=== PATIENT | male | born 1945 | race Caucasian/White ===

== ENCOUNTER 2017-11-26 08:16 | Emergency (ER) | payer MEDICARE ==
[2017-11-26] MEDS ORDERED: METHYLPREDNISOLONE 80MG/VIAL IM ONE (08:30)
--- NOTE | 2017-11-26 08:38 | Emergency Department Record ---
History of Present Illness - General Chief complaint: Rash Stated complaint: POISON KATE Time Seen by Provider: 11/26/17 08:24 Source: Patient, RN notes reviewed Mode of Arrival: Ambulatory - History of Present Illness Initial comments: patient got rash 5 days ago and it is around the face and groin and hands and it itches and looks like poison kate Onset/Timin -: Days(s) Hx Tetanus Toxoid Vaccination: Yes Location: L hand, R hand, Genitals Severity: Mild Quality: Other Consistency: Constant Improves with: None Worsens with: None Context: Other Associated symptoms: Itching Treatments Prior to Arrival: None - Related Data Previous Rx's Medication Instructions Recorded Prednisone [Prednisone 10Mg] 10 mg PO ASDIR #30 tab 11/26/17 Allergies Allergy/AdvReac Type Severity Reaction Status Date / Time No Known Drug Allergies Allergy Unverified 03/16/16 14:36 Travel Screening - Travel/Exposure Within Last 30 Days Have you traveled within the last 30 days?: No Review of Systems Reviewed: No additional complaints except as noted below Constitutional: Reports: As per HPI. Denies: Chills, Fever, Malaise, Night sweats, Weakness, Weight change Eyes: Reports: As per HPI. Denies: Eye discharge, Eye pain, Photophobia, Vision change ENT: Reports: As per HPI. Denies: Congestion, Dental pain, Ear pain, Epistaxis , Hearing loss, Throat pain Respiratory: Reports: As per HPI. Denies: Cough, Dyspnea, Hemoptysis, Stridor, Wheezes Cardiovascular: Reports: As per HPI. Denies: Arrhythmia, Chest pain, Dyspnea on exertion, Edema, Murmurs, Orthopnea, Palpitations, Paroxysmal nocturnal dyspnea, Rheumatic Fever, Syncope Endocrine: Reports: As per HPI. Denies: Fatigue, Heat or cold intolerance, Polydipsia, Polyuria Gastrointestinal: Reports: As per HPI. Denies: Abdominal pain, Constipation, Diarrhea, Hematemesis, Hematochezia, Melena, Nausea, Vomiting Genitourinary: Reports: As per HPI. Denies: Dysuria, Frequency, Hematuria, Incontinence, Retention, Testicular pain, Testicular mass, Urgency Musculoskeletal: Reports: As per HPI. Denies: Arthralgia, Back pain, Gout, Joint swelling, Myalgia, Neck pain Skin: Reports: As per HPI, Rash. Denies: Bruising, Change in color, Change in hair/nails, Lesions, Pruritus Neurological: Reports: As per HPI. Denies: Abnormal gait, Confusion, Headache, Numbness, Paresthesias, Seizure, Tingling, Tremors, Vertigo, Weakness Psychiatric: Reports: As per HPI. Denies: Anxiety, Auditory hallucinations, Depression, Homicidal thoughts, Suicidal thoughts, Visual hallucinations Hematological/Lymphatic: Reports: As per HPI. Denies: Anemia, Blood Clots, Easy bleeding, Easy bruising, Swollen glands Past Medical History - SOCIAL HISTORY Smoking Status: Former smoker Alcohol Use: None Drug Use: None - RESPIRATORY Hx Respiratory Disorders: No - CARDIOVASCULAR Hx Cardio Disorders: Yes Hx Cardiac Cath: Yes Hx Heart Attack: Yes (1 cardiac stent 2004) Hx Irregular Heartbeat: Yes Comment:: high cholestrol - NEURO Hx Neuro Disorders: No - GI Hx GI Disorders: No - Hx Genitourinary Disorders: No - ENDOCRINE Hx Endocrine Disorders: No - MUSCULOSKELETAL Hx Musculoskeletal Disorders: Yes Hx Arthritis: Yes - PSYCH Hx Psych Problems: No - HEMATOLOGY/ONCOLOGY Hx Hematology/Oncology Disorders: No Family Medical History Any Significant Family History?: Yes Hx Heart Disease: Father Physical Exam - General General Appearance: Alert, Oriented x3, Cooperative, No acute distress - Head Head exam: Normal inspection - Eye Eye exam: Normal appearance, PERRL Pupils: Normal accommodation - ENT ENT exam: Normal exam, Mucous membranes moist, Normal external ear exam, Normal orophraynx, TM's normal bilaterally Ear exam: Normal external inspection. negative: External canal tenderness Nasal Exam: Normal inspection. negative: Discharge, Sinus tenderness Mouth exam: Normal external inspection, Tongue normal Teeth exam: Normal inspection. negative: Dental caries Throat exam: Normal inspection. negative: Tonsillar erythema, Tonsillar exudate - Neck Neck exam: Normal inspection, Full ROM. negative: Tenderness - Respiratory Respiratory exam: Normal lung sounds bilaterally. negative: Respiratory distress - Cardiovascular Cardiovascular Exam: Regular rate, Normal rhythm, Normal heart sounds - GI/Abdominal GI/Abdominal exam: Soft, Normal bowel sounds. negative: Tenderness - Rectal Rectal exam: Deferred - exam: Deferred - Extremities Extremities exam: Normal inspection, Full ROM, Normal capillary refill. negative: Tenderness - Back Back exam: Reports: Normal inspection, Full ROM. Denies: Muscle spasm, Rash noted, Tenderness - Neurological Neurological exam: Alert, Normal gait, Oriented X3, Reflexes normal - Psychiatric Psychiatric exam: Normal affect, Normal mood - Skin Skin exam: Dry, Intact, Rash Course Vital Signs 11/26/17 08:18 Temperature 97.7 F Pulse Rate 54 L Respiratory 20 Rate Blood Pressure 130/74 Pulse Ox 98 Disposition Clinical Impression: Poison kate dermatitis Disposition: Home, Self-Care Condition: (1) Good Instructions: Poison Kate (ED) Additional Instructions: follow up with family Dr. cruz pills 25 mg one to two every 6 hours for itching calamine lotion as needed Prescriptions: Prednisone [Prednisone 10Mg] 10 mg PO ASDIR #30 tab Forms: Patient Portal Access Time of Disposition: 08:38 Quality - Quality Measures Quality Measures: N/A - Blood Pressure Screening Does Patient Have Any of the Following: No Blood Pressure Classification: Pre-Hypertensive BP Reading Systolic Measurement: 130 Diastolic Measurement: 74 Screening for High Blood Pressure: < Pre-Hypertensive BP, F/U Documented > [ [id number]] Pre-Hypertensive Follow-up Interventions: Referral to alternative/primary care provider.
== END 2017-11-26 09:05 | disposition home or self-care (01) ==
LOC: ER 08:16
DX: L23.7 Allergic contact dermatitis due to plants, except food (principal); Z87.891 Personal history of nicotine dependence; E78.00 Pure hypercholesterolemia, unspecified
CPT/HCPCS: 96372; 99283; J1040

== ENCOUNTER 2018-05-27 08:50 | Day surgery (SDC) | payer MEDICARE ==
[2018-05-27] MEDS ORDERED: PROPOFOL 10 MG/ML VIAL IV ONE (08:51)
[2018-05-27] MEDS ORDERED: GLYCOPYRROLATE 0.2 MG/ML ML IV ONE (08:51)
[2018-05-27] MEDS ORDERED: LIDOCAINE 2% MDV (20MG/ML) 20ML VIAL IV ONE (08:51)
--- NOTE | 2018-05-30 08:50 | Operative Note ---
DATE OF SURGERY: 05/27/2018 SURGEON: Helga Tello MD OPERATION: COLONOSCOPY. INDICATIONS: This is a 73-year-old male with average risk for colorectal cancer who presented for screening colonoscopy. POSTOPERATIVE DIAGNOSIS: Normal colon. Last colonoscopy was about 10 years ago. ANESTHESIA: Sedation is per Anesthesia. Pulse oximetry was monitored throughout the procedure to maintain O2 saturation of 90% or greater. Supplemental oxygen was administered via nasal cannula. Cardiac and vital signs were monitored throughout the duration of the procedure, and they were stable. The procedure of colonoscopy and risks and alternatives of the procedure, including the risk of bleeding and perforation, among others, were explained to the patient who voiced understanding and agreed to have the procedure done. Physical examination was performed, and the patient was found stable for sedation. PROCEDURE: The patient was placed in the left lateral position. Sedation was initiated. A digital rectal exam was performed and showed some mild external hemorrhoids with no palpable rectal masses. An Olympus PCF-180AL colonoscope was then inserted into the rectum under direct visualization. It was advanced to the cecum without difficulty. The ileocecal valve and appendiceal orifice were identified and photographed. The colonic mucosa was carefully examined upon introduction of the colonoscope. There were no lesions noted. The colonoscope was then withdrawn while carefully examining the colonic mucosal surfaces. No lesions were noted. In the rectum, retroflexion was performed and grade 1 internal hemorrhoids were noted. The colonoscope was then withdrawn and the procedure was terminated. The patient tolerated the procedure well without any immediate complications. The patient remained with stable vital signs and was transferred to the recovery room. RECOMMENDATIONS: 1. The patient should be on a high-fiber diet. 2. The patient is to have a repeat colonoscopy for screening as needed. Thank you for allowing me to participate in the care of your patient. CC: NAT Matias
== END 2018-05-27 11:15 | disposition home or self-care (01) ==
LOC: HOP 08:50
PROVIDERS: ATTEND Internal Medicine Gastroenterology
DX: Z12.11 Encounter for screening for malignant neoplasm of colon (principal); I10 Essential (primary) hypertension; E78.00 Pure hypercholesterolemia, unspecified
CPT/HCPCS: 00812; G0121